=== PATIENT | female | born 1995 | race African-American/Black ===

== ENCOUNTER 2020-08-31 11:26 | Emergency (ER) | payer MEDICAID, OTHER ==
[~2020-08-31] VITALS: Ht 165.1 cm; Wt 55.0 kg
[2020-08-31] MEDS ORDERED: TRAMADOL 50MG TABLET PO ONE (11:45)
[2020-08-31] MEDS ORDERED: BACITRACIN ZINC OINT UDPKT TOP ONE (11:45)
[2020-08-31] MEDS ORDERED: ACETAMINOPHEN 325MG TABLET PO ONE (11:45)
[2020-08-31] MEDS ORDERED: TETANUS, DIPHTHERIA, PERTUSSIS VAC/PF 0.5ML (>7YR OLD) IM ONE (12:00)
[2020-08-31] MEDS ORDERED: AMOX-424 MT (12:49)
[2020-08-31] MEDS ORDERED: BO1 TP (12:49)
[2020-08-31 12:59] VITALS: BP 106/79
== END 2020-08-31 13:00 | disposition home or self-care (01) ==
LOC: ER 11:26
DX: S61.250A Open bite of right index finger without damage to nail, initial encounter (principal); S61.252A Open bite of right middle finger without damage to nail, initial encounter; D64.9 Anemia, unspecified; J45.909 Unspecified asthma, uncomplicated; F12.10 Cannabis abuse, uncomplicated; W50.3XXA Accidental bite by another person, initial encounter; Y93.89 Activity, other specified; Y92.89 Other specified places as the place of occurrence of the external cause; Y99.8 Other external cause status
CPT/HCPCS: 73130; 90471; 90715; 99284

== ENCOUNTER 2020-09-05 17:04 | Emergency (ER) | payer MEDICAID ==
[~2020-09-05] VITALS: Ht 160 cm; Wt 75.0 kg
[~2020-09-05 17:04] MED LIST: AMOX-424 MT; BO1 TP
[2020-09-05 17:18] VITALS: BP 123/80
[2020-09-05] MEDS ORDERED: FLUCONAZOLE 150MG TABLET PO ONE (19:00)
[2020-09-05] MEDS ORDERED: ACETAMINOPHEN 325MG TABLET PO ONE (19:00)
[2020-09-05 19:53] LABS: CLARITY URINE CLOUDY (CLEAR); COLOR URINE YELLOW (YELLOW); KETONES URINE NEGATIVE (NEGATIVE); LEUKOCYTE ESTERASE URINE 2+ (NEGATIVE); NITRITE URINE NEGATIVE (NEGATIVE); OCCULT BLOOD URINE NEGATIVE (NEGATIVE); PROTEIN URINE NEGATIVE (NEGATIVE); SPECIFIC GRAVITY URINE 1.018 (1.005-1.030); UROBILINOGEN URINE 0.2 E.U./dL (0.2-1.0)
== END 2020-09-05 19:40 | disposition left against medical advice (07) ==
LOC: ER 17:04
DX: M79.641 Pain in right hand (principal); R30.0 Dysuria; F12.10 Cannabis abuse, uncomplicated; J45.909 Unspecified asthma, uncomplicated; Z98.890 Other specified postprocedural states
CPT/HCPCS: 73130; 81003; 81025; 99284